=== PATIENT | male | born 2000 | race Hispanic/Latino ===

== ENCOUNTER 2023-10-30 08:27 | Emergency (ER) | payer SELFPAY ==
[2023-10-30] MEDS ORDERED: Ondansetron ODT 4 MG TAB ONE (08:39)
== END 2023-10-30 09:33 | disposition home or self-care (01) ==
LOC: NAV ERS 08:27
DX: J02.9 Acute pharyngitis, unspecified (principal); R11.10 Vomiting, unspecified; R09.81 Nasal congestion; F17.290 Nicotine dependence, other tobacco product, uncomplicated
CPT/HCPCS: 99284; Q0162